=== PATIENT | male | born 1975 | race Hispanic/Latino ===

== ENCOUNTER → 2018-12-17 | Outpatient (CLI) | payer BC ==
--- NOTE | 2018-12-17 10:17 | Diagnostic Imaging Report ---
Exam: Scanning in the left upper upper extremity over the area of palpable concern was accomplished. History: Soft tissue nodule Comparison: None available Findings: In the region of the posterior upper arm above the elbow there is a echogenic lesion measuring 2.7 x 0.8 x 2.3 cm. This most likely represents a fibrous/fatty benign nodule. No increased vascularity is seen. Impression: Fibro/fatty nodule in the area of concern in the left upper extremity. Signed by: Dr. Pk Juarez DO on 12/17/2018 10:13 AM
--- NOTE | 2018-12-18 08:28 | Diagnostic Imaging Report ---
#[id number] - USBRECOMLT ULTRASOUND OF THE LEFT BREAST : 12/17/2018 No prior exams were available for comparison. Color flow, real-time and Doppler ultrasound were performed on the entire left breast with scanning in all four quadrants, retroareolar region and the left axilla. -There is an ill defined hyperechoic lesion at 5 o'clock 3 cm from the nipple measuring 1.5 x 0.7 x 1.2 cm. This is where there is a palpable finding. This likely represents a lipoma. IMPRESSION: BENIGN There is no sonographic evidence of malignancy. Follow-up with ACR/ACS guidelines. Pk Juarez Jr., D.O. cw/:12/17/2018 14:11:18 Security Officers And Guards: Barney Coleman [facility], [facility] letter sent: Normal Exam Ultrasound BI-RADS: 2 Benign
== END ==
LOC: US 07:18
PROVIDERS: ATTEND Family Medicine
DX: R22.32 Localized swelling, mass and lump, left upper limb (principal); N63.20 Unspecified lump in the left breast, unspecified quadrant
CPT/HCPCS: 76882